=== PATIENT | female | born 1975 | race Hispanic/Latino ===

== ENCOUNTER 2019-01-24 15:19 | Outpatient (CLI) | payer BC ==
--- NOTE | 2019-01-24 18:02 | MRI ---
MRI OF THE BRAIN WITHOUT AND WITH CONTRAST: 01/24/19 HISTORY: Pituitary tumor. Benign neoplasm of the pituitary gland. TECHNIQUE: Multiplanar and multisequence MR images were obtained of the brain without and with contrast. FINDINGS: The pituitary stalk deviates to the left which is unchanged. There is slight fullness of the right as pect of the pituitary gland and there is the appearance of an 8 mm right pituitary mass which likely represents a microadenoma. This has not changed significantly compared to the prior examination. There is a 5 mm nodule along the roof of the right lateral ventricle which is also unchanged. This no dule does not demonstrate significant enhancement. No restricted diffusion is seen. No other abnormal areas of enhancement are seen. There is no evidenc e of hydrocephalus, intracranial hemorrhage or extra-axial fluid collections. The expected flow voids are present. The corpus callosum and craniocervical junction are unremarkable . The calvarium and overlying soft tissues are unremarkable. The visualized paranasal sinuses and masto id air cells are well aerated. IMPRESSION: 1. Stable right pituitary microadenoma. 2. Stable nodule within the right lateral ventricle. POS: [facility]
== END 2019-01-24 15:20 | disposition home or self-care (01) ==
LOC: SCSMRI 15:19
PROVIDERS: ATTEND Internal Medicine Endocrinology, Diabetes & Metabolism
DX: D35.2 Benign neoplasm of pituitary gland (principal); G93.89 Other specified disorders of brain
CPT/HCPCS: 70553